=== PATIENT | female | born 1995 | race Caucasian/White ===

== ENCOUNTER → 2019-10-24 | Emergency (ER) | payer SELFPAY ==
[~2019-10-24] VITALS: Ht 160 cm; Wt 62.6 kg
[~2019-10-24] MED LIST: ACETAMINOPHEN 500 MG TAB PO ONE
[2019-10-24 23:49] VITALS: BP 120/87
== END | disposition home or self-care (01) ==
LOC: ER 20:12
DX: S61.452A Open bite of left hand, initial encounter (principal); W55.01XA Bitten by cat, initial encounter; Y93.89 Activity, other specified; Y92.89 Other specified places as the place of occurrence of the external cause; Y99.8 Other external cause status